=== PATIENT | male | born 1950 | race American Indian/Alaskan Native ===

== ENCOUNTER 2017-04-12 17:58 | Emergency (ER) | payer MEDICARE, OTHER ==
[2017-04-12 18:06] VITALS: BP 139/83; PULSE 84; RESP 16; TEMP 98.1
[2017-04-12 18:23] VITALS: O2SAT 98
--- NOTE | 2017-04-12 18:35 | ED PDOC ---
Arrival/HPI - General Chief Complaint: Allergic Reaction Time Seen by Provider: 04/12/17 18:16 Historian: Patient - History of Present Illness Narrative History of Present Illness (Text): 04/12/17 18:30 A 66 year old male, whose past medical history includes hypertension, coronary artery disease with cabg, AICD, and lymphoma that is reportedly in remission, presents to the emergency department complaining of itching primarily on scalp but also feeling it on arms and legs. Patient has no rash. Patient reports using ibuprofen for the past month for sciatica. Patient also notes a right sided headache over the past week. Patient denies abdominal pain, nausea, vomiting, fever or any other complaints at this time. Dr. Cuadra Symptom Onset: Sudden Symptom Course: Unchanged Activities at Onset: Rest Context: Home Past Medical History - Provider Review Nursing Documentation Reviewed: Yes - Cardiac Hx Hypertension: Yes Hx Pacemaker: Yes (AICD) - Pulmonary Hx Respiratory Disorders: No - Neurological Hx Neurological Disorder: No - HEENT Hx HEENT Disorder: No - Renal Hx Renal Disorder: No - Endocrine/Metabolic Hx Endocrine Disorders: No - Hematological/Oncological Hx Anemia: Yes - Integumentary Hx Dermatological Disorder: No - Musculoskeletal/Rheumatological Hx Back Pain: Yes - Gastrointestinal Hx Gastrointestinal Disorders: Yes Hx Gastroesophageal Reflux: Yes - Genitourinary/Gynecological Hx Genitourinary Disorders: No - Psychiatric Hx Psychophysiologic Disorder: No Hx Substance Use: No - Surgical History Hx Cholecystectomy: Yes Hx Coronary Artery Bypass Graft: Yes (Triple Bypass) - Anesthesia Hx Anesthesia: Yes Family/Social History - Physician Review Nursing Documentation Reviewed: Yes Family/Social History: No Known Family HX Smoking Status: Never Smoked Hx Alcohol Use: Yes Hx Substance Use: No Allergies/Home Meds Allergies/Adverse Reactions: Allergies No Known Allergies Allergy (Unverified 04/12/17 18:00) Home Medications: Home Meds Medication Instructions Recorded Confirmed Aspirin [Aspirin Low Dose] 81 mg PO DAILY 08/20/15 04/12/17 Atorvastatin [Lipitor] 10 mg PO DAILY 08/20/15 04/12/17 Carvedilol [Coreg] 3.125 mg PO BID 08/20/15 04/12/17 Losartan Potassium 25 mg PO DAILY 08/20/15 04/12/17 Omeprazole [PrilOSEC] 40 mg PO DAILY 09/20/15 05/13/17 Review of Systems - Physician Review All systems were reviewed & negative as marked: Yes - Review of Systems Constitutional: absent: Fevers Respiratory: absent: SOB Cardiovascular: absent: Chest Pain Gastrointestinal: absent: Abdominal Pain, Nausea, Vomiting Genitourinary Male: absent: Dysuria Skin: Pruritis. absent: Skin Lesions Neurological: Headache (r sided). absent: Dizziness, Focal Weakness Physical Exam Vital Signs Reviewed: Yes Vital Signs Temp Pulse Resp BP Pulse Ox 04/12/17 18:22 98.1 F 84 16 98 04/12/17 18:01 98.1 F 84 16 139/83 96 Temperature: Afebrile Blood Pressure: Normal Pulse: Regular Respiratory Rate: Normal Appearance: Positive for: Well-Appearing, Non-Toxic, Comfortable Pain Distress: None Mental Status: Positive for: Alert and Oriented X 3 - Systems Exam Head: Present: Atraumatic, Normocephalic Pupils: Present: PERRL Conjunctiva: Present: Normal Mouth: Present: Moist Mucous Membranes Pharnyx: Present: Normal. No: ERYTHEMA, EXUDATE Neck: Present: Normal Range of Motion Respiratory/Chest: Present: Clear to Auscultation, Good Air Exchange. No: Respiratory Distress, Accessory Muscle Use Cardiovascular: Present: Regular Rate and Rhythm, Normal S1, S2. No: Murmurs Abdomen: Present: Normal Bowel Sounds. No: Tenderness, Distention, Peritoneal Signs Back: Present: Normal Inspection Upper Extremity: Present: Normal Inspection. No: Cyanosis, Edema Lower Extremity: Present: Normal Inspection. No: Edema Neurological: Present: GCS=15, CN II-XII Intact, Speech Normal Skin: Present: Warm, Dry, Normal Color. No: Rashes Psychiatric: Present: Alert, Oriented x 3, Normal Insight, Normal Concentration Medical Decision Making ED Course and Treatment: 04/12/17 18:37 Impression: A 66 year old male with itching on scalp, arms and legs and right sided headache. Differential Diagnosis included but are not limited to: allergic reaction vs. hyperbilirubinemia/cholestatic vs. malignancy related Plan: -- CT head wo contrast -- Labs -- Reassess and disposition Prior Visits: Notes and results from previous visits were reviewed. Patient last reported to the emergency department on 08/20/15 for evaluation of abdominal pain. Patient was discharged. Progress Notes: CT head- FINDINGS: BRAIN: Areas of low density in the periventricular white matter bilaterally, most likely representing mild chronic small vessel ischemic changes. Diffuse, mild, age-related cortical atrophy and ventriculomegaly. No significant acute abnormality identified. No acute hemorrhage seen within the brain. No acute extra-axial fluid collections visualized. No evidence of significant mass effect within the brain. No CT findings to suggest an acute, large territorial infarct, however, small or early acute infarcts may not be visible on CT. VENTRICLES: See above. BONES/JOINTS: No acute fractures or other acute bony abnormality noted. SOFT TISSUES: No acute abnormality of the visualized soft tissues is seen. VASCULATURE: Vascular calcification and ectasia. SINUSES: Visualized paranasal sinuses appear clear. MASTOID AIR CELLS: Mastoid air cells appear clear. IMPRESSION: - No acute findings seen within the brain. - See above for remaining findings. Dictated and Authenticated by: Kathy Petit MD 04/12/2017 7:56 PM Eastern Time ([place] & [place]) Patient with unremarkable LFTs and normal brain CT - will have him d/c the ibuprofen and start atarax. Given his history of lymphoma and possible relationship of pruritis to hematologic malignancies, the patient has been advised to f/u with his oncologist at [facility]. - Lab Interpretations Lab Results: 04/12/17 19:00 04/12/17 19:00 Lab Results 04/12/17 19:00: Sodium 136, Potassium 4.5, Chloride 97 L, Carbon Dioxide 29, Anion Gap 15, BUN 22 H, Creatinine 1.0, Est GFR ( Amer) > 60, Est GFR ( Non-Af Amer) > 60, Random Glucose 85, Calcium 10.1, Total Bilirubin 0.7, AST 44 , ALT 53, Alkaline Phosphatase 123, Total Protein 8.2, Albumin 4.3, Globulin 3.9 , Albumin/Globulin Ratio 1.1 04/12/17 19:00: Direct Bilirubin 0.5 H 04/12/17 19:00: WBC 4.7, RBC 4.85, Hgb 14.7, Hct 42.9, MCV 88.5, MCH 30.3, MCHC 34.3, RDW 13.4, Plt Count 127, MPV 9.9, Gran % 56.7, Lymph % (Auto) 30.8, [place] % (Auto) 9.1 H, Eos % (Auto) 3.4, Baso % (Auto) 0.0, Gran # 2.69, Lymph # 1.5, [place] # 0.4, Eos # 0.2, Baso # 0.00 I have reviewed the lab results: Yes - RAD Interpretation Radiology Orders: 04/12/17 18:25 Brain [HEAD W/O CONTRAST] [CT] Stat - Scribe Statement The provider has reviewed the documentation as recorded by the Scribe Yanet Bliss Provider Scribe Attestation: All medical record entries made by the Scribe were at my direction and personally dictated by me. I have reviewed the chart and agree that the record accurately reflects my personal performance of the history, physical exam, medical decision making, and the department course for this patient. I have also personally directed, reviewed, and agree with the discharge instructions and disposition. Disposition/Present on Arrival - Present on Arrival Any Indicators Present on Arrival: No History of DVT/PE: No History of Uncontrolled Diabetes: No Urinary Catheter: No History of Decub. Ulcer: No History Surgical Site Infection Following: None - Disposition Have Diagnosis and Disposition been Completed?: Yes Diagnosis: Pruritic condition Disposition: HOME/ ROUTINE Disposition Time: 20:10 Patient Plan: Transfer To Condition: GOOD Discharge Instructions (ExitCare): Itchy Skin (ED) Additional Instructions: Stop the ibuprofen and use the atarax as prescribed for itching. Also stop any recent detergents, soaps, or perfumes. Make matthew you follow up with your oncologist at [facility] to assure that the itching is not related to any malignancy. Return to the emergency department if any new concerning symptoms. Prescriptions: hydrOXYzine HCl [Atarax] 25 mg PO Q6H PRN #30 tab PRN Reason: Itching / Pruritus Referrals: Carole Cuadra MD [Primary Care Provider] - Follow up with primary
[2017-04-12 19:21] LABS: ADD MANUAL DIFF? NO
[2017-04-12 19:36] LABS: EOS # 0.2 (0.0-0.7); EOS % 3.4 % (1.5-5.0); GRAN # 2.69 (1.4-6.5); GRAN % 56.7 % (50.0-68.0); HEMATOCRIT 42.9 % (42.0-52.0); LYMPH # 1.5 (1.2-3.4); LYMPH % 30.8 % (22.0-35.0); MEAN CELL VOLUME 88.5 fL (80.0-105.0); MEAN CORPUSCULAR HEMOGLOBIN 30.3 pg (25.0-35.0); MEAN CORPUSCULAR HGB CONC 34.3 g/dl (31.0-37.0); MEAN PLATELET VOLUME 9.9 fl (7.0-11.0); MONO # 0.4 (0.1-0.6); MONO % 9.1 % (1.0-6.0); PLATELET COUNT 127 10^3/uL (120.0-450.0); RED CELL DISTRIBUTION WIDTH 13.4 % (11.5-14.5); WHITE BLOOD COUNT 4.7 10^3/ul (4.5-11.0)
--- NOTE | 2017-04-12 19:56 | CT ---
EXAM: CT Head Without Intravenous Contrast CLINICAL HISTORY: 66 years old, male; Condition or disease; Headache; Patient HX: R side headache TECHNIQUE: Axial computed tomography images of the head/brain without intravenous contrast. This CT exam was performed using one or more of the following dose reduction techniques: automated exposure control, adjustment of the mA and/or kV according to patient size, and/or use of iterative reconstruction technique. EXAM DATE/TIME: 04/12/2017 6:25 PM COMPARISON: No relevant prior studies available. FINDINGS: BRAIN: Areas of low density in the periventricular white matter bilaterally, most likely representing mild chronic small vessel ischemic changes. Diffuse, mild, age-related cortical atrophy and ventriculomegaly. No significant acute abnormality identified. No acute hemorrhage seen within the brain. No acute extra-axial fluid collections visualized. No evidence of significant mass effect within the brain. No CT findings to suggest an acute, large territorial infarct, however, small or early acute infarcts may not be visible on CT. VENTRICLES: See above. BONES/JOINTS: No acute fractures or other acute bony abnormality noted. SOFT TISSUES: No acute abnormality of the visualized soft tissues is seen. VASCULATURE: Vascular calcification and ectasia. SINUSES: Visualized paranasal sinuses appear clear. MASTOID AIR CELLS: Mastoid air cells appear clear. IMPRESSION: - No acute findings seen within the brain. - See above for remaining findings.
[2017-04-12 19:58] LABS: ALB/GLOB RATIO 1.1 (1.1-1.8); ALKALINE PHOSPHATASE 123 U/L (38-133); ALT/SGPT 53 U/L (7-56); AST/SGOT 44 U/L (15-59); BILIRUBIN,TOTAL 0.7 mg/dL (0.2-1.3); BLOOD UREA NITROGEN 22 mg/dL (7-21); CALCIUM 10.1 mg/dL (8.4-10.5); CARBON DIOXIDE 29 mmol/L (21-33); CHLORIDE 97 mmol/L (98-107); GFR AFRICAN-AMERICAN > 60; GLUCOSE,RANDOM 85 mg/dL (70-110); POTASSIUM 4.5 mmol/L (3.6-5.0); SODIUM 136 mmol/L (132-148); TOTAL PROTEIN 8.2 g/dL (5.8-8.3)
== END 2017-04-12 20:25 | disposition home or self-care (01) ==
LOC: ED 17:58
DX: L29.9 Pruritus, unspecified (principal); I10 Essential (primary) hypertension; I25.10 Atherosclerotic heart disease of native coronary artery without angina pectoris; Z95.1 Presence of aortocoronary bypass graft

== ENCOUNTER 2018-08-07 19:30 | Observation (INO) | payer MEDICARE ==
--- NOTE | 2018-08-07 20:21 | ED PDOC ---
Arrival/HPI - General Chief Complaint: Pacemaker Problem Time Seen by Provider: 08/07/18 19:51 Historian: Patient - History of Present Illness Narrative History of Present Illness (Text): 08/07/18 20:23 Patient 68-year-old male with past medical history of a triple bypass in 2013, tissue valvular implant 2013, and AICD placement in 2014, reports while he was driving he started feeling dizzy described as lightheadedness associated with palpitations, then suddenly he felt a shock for a second from his defibrillator which has never occurred before. Reports no chest pain, dizziness, palpitations currently, states that he "feels good." Otherwise: (-) radiation, (-) diaphoresis, (-) dyspnea, (-) pleuritic component, (-) ripping or tearing quality, (-) positional component, (-) exertional component, (-) syncope, (-) nausea, (-) vomiting, (-) calf swelling/pain, (-) neuro deficits. Patient further adds that he had a stress test and an echo ~2-3 years ago and "was good. " Patient adds that he took his aspirin dose today. Cardio : Rory Camarena ([facility]) PMD : You Ashley APN ([facility]) Sack Department Supervisor : Kaveh Penn Past Medical History - Cardiac Hx Cardiac Disorders: Yes Hx Hypertension: Yes Hx Pacemaker: Yes (AICD) - Pulmonary Hx Respiratory Disorders: No - Neurological Hx Neurological Disorder: No - HEENT Hx HEENT Disorder: No - Renal Hx Renal Disorder: No - Endocrine/Metabolic Hx Endocrine Disorders: No - Hematological/Oncological Hx Blood Disorders: Yes Hx Anemia: Yes - Integumentary Hx Dermatological Disorder: No - Musculoskeletal/Rheumatological Hx Musculoskeletal Disorders: Yes Hx Back Pain: Yes - Gastrointestinal Hx Gastrointestinal Disorders: Yes Hx Gastroesophageal Reflux: Yes - Genitourinary/Gynecological Hx Genitourinary Disorders: No - Psychiatric Hx Psychophysiologic Disorder: No Hx Substance Use: No - Surgical History Hx Cholecystectomy: Yes Hx Coronary Artery Bypass Graft: Yes (Triple Bypass) - Anesthesia Hx Anesthesia: Yes Family/Social History Family/Social History: Unknown Family HX Smoking Status: Light Smoker < 10 Cigarettes Daily Hx Alcohol Use: No Hx Substance Use: No Allergies/Home Meds Allergies/Adverse Reactions: Allergies No Known Allergies Allergy (Unverified 08/07/18 19:35) Home Medications: Home Meds Medication Instructions Recorded Confirmed Aspirin [Aspirin Low Dose] 81 mg PO DAILY 08/20/15 08/07/18 Atorvastatin [Lipitor] 10 mg PO DAILY 08/20/15 08/07/18 Carvedilol [Coreg] 3.125 mg PO BID 08/20/15 08/07/18 Losartan Potassium 25 mg PO DAILY 08/20/15 08/07/18 Omeprazole [PrilOSEC] 40 mg PO DAILY 08/20/15 08/07/18 Review of Systems - Review of Systems Constitutional: absent: Fatigue, Fevers Respiratory: absent: SOB, Cough, Sputum Cardiovascular: Palpitations. absent: Chest Pain Gastrointestinal: Nausea. absent: Abdominal Pain, Stool Changes Genitourinary Male: absent: Dysuria, Frequency, Hematuria Musculoskeletal: absent: Arthralgias, Back Pain, Neck Pain Skin: absent: Rash, Pruritis, Skin Lesions Neurological: Dizziness. absent: Headache, Focal Weakness Physical Exam Vital Signs Temp Pulse Resp BP Pulse Ox 08/07/18 19:36 98.7 F 82 16 95/60 L 96 Temperature: Afebrile Blood Pressure: Normal Pulse: Regular Respiratory Rate: Normal Appearance: Positive for: Well-Appearing, Non-Toxic, Comfortable Pain Distress: None Mental Status: Positive for: Alert and Oriented X 3 - Systems Exam Head: Present: Atraumatic, Normocephalic Pupils: Present: PERRL Extroacular Muscles: Present: EOMI Conjunctiva: Present: Normal Mouth: Present: Moist Mucous Membranes Neck: Present: Normal Range of Motion Respiratory/Chest: Present: Clear to Auscultation, Good Air Exchange. No: Respiratory Distress, Accessory Muscle Use, Wheezes, Rales, Rhonchi Cardiovascular: Present: Regular Rate and Rhythm, Normal S1, S2. No: Murmurs, Tachycardic Abdomen: No: Tenderness, Distention, Peritoneal Signs Back: Present: Normal Inspection Upper Extremity: Present: Normal Inspection, Normal ROM, NORMAL PULSES. No: Cyanosis, Edema Lower Extremity: Present: Normal Inspection, NORMAL PULSES, Normal ROM, Neurovascularly Intact, Capillary Refill < 2 s, Other (no pitting edema). No: Edema, Swelling, Temperature Abnormalties Neurological: Present: GCS=15, CN II-XII Intact, Speech Normal, Motor Func Grossly Intact, Normal Sensory Function Skin: Present: Warm, Dry, Normal Color. No: Rashes Psychiatric: Present: Alert, Oriented x 3, Normal Insight, Normal Concentration Medical Decision Making ED Course and Treatment: 08/07/18 20:21 Plan: -- Labs -- IV -- conveyor monitor -- EKG -- CXR -- Reassess and disposition EKG: NSR at 71 bpm, LAD, (-) acute ST changes, as read by BRIGID. CXR : increase in vascular markings, NAD, as read by PA Labs reviewed : Troponin negative, BNP 1999 On re-evaluation, patient remains AAOx3, in no acute distress, speaking in full sentences. He is ambulatory in the ER. He is in good spirits, has no complaints. Reports no dizziness, CP, palpitations, SOB. Diagnostic results d/w him, plan for further tele obs d/w the patient, which he agrees to. Case d/w Dr. Singh and Dr. Perales, agree with plan for tele obs under the hospitalist service. - Lab Interpretations Lab Results: 08/07/18 20:42 08/07/18 20:42 Lab Results 08/07/18 20:42: Sodium 138, Potassium 4.7, Chloride 103, Carbon Dioxide 25, Anion Gap 14, BUN 20, Creatinine 1.0, Est GFR ( Amer) > 60, Est GFR (Non- Af Amer) > 60, Random Glucose 99, Calcium 9.6, Magnesium 1.7, Total Bilirubin 0.6, AST 36, ALT 36, Alkaline Phosphatase 99, Lactate Dehydrogenase 483, Total Creatine Kinase 291 H, CK-MB (CK-2) 1.9, CK-MB (CK-2) % Cancelled, Troponin I 0.03, NT-Pro-B Natriuret Pep 2090 H, Total Protein 7.4, Albumin 4.2, Globulin 3.2, Albumin/Globulin Ratio 1.3 08/07/18 20:42: PT 12.8 H, INR 1.12, APTT 30.2 08/07/18 20:42: WBC 5.9 D, RBC 4.39, Hgb 13.1 L, Hct 39.1 L, MCV 89.1, MCH 29.8 , MCHC 33.5, RDW 13.3, Plt Count 117 L, MPV 9.2, Gran % 71.1 H, Lymph % (Auto) 23.0, [place] % (Auto) 5.4, Eos % (Auto) 0.3 L, Baso % (Auto) 0.2, Gran # 4.20, Lymph # (Auto) 1.4, [place] # (Auto) 0.3, Eos # (Auto) 0.0, Baso # (Auto) 0.01 - RAD Interpretation Radiology Orders: 08/07/18 20:13 CHEST PORTABLE [RAD] Stat - PA / WIG MAKER / Resident Statement / has reviewed & agrees with the documentation as recorded. Disposition/Present on Arrival - Present on Arrival Any Indicators Present on Arrival: No History of DVT/PE: No History of Uncontrolled Diabetes: No Urinary Catheter: No History of Decub. Ulcer: No History Surgical Site Infection Following: None - Disposition Have Diagnosis and Disposition been Completed?: Yes Diagnosis: CHF (congestive heart failure), AICD discharge Disposition: HOSPITALIZED Disposition Time: 22:00 Patient Plan: Telemetry (observation) Condition: STABLE Discharge Instructions (ExitCare): Heart Failure (ED) Forms: [employer] (Bulgarian)
[2018-08-07 21:08] LABS: BASO # 0.01 K/mm3 (0.0-2.0); BASO % 0.2 % (0.0-3.0); EOS % 0.3 % (1.5-5.0); GRAN # 4.2 (1.4-6.5); GRAN % 71.1 % (50.0-68.0); HEMOGLOBIN 13.1 g/dL (14.0-18.0); LYMPH # 1.4 (1.2-3.4); MEAN CELL VOLUME 89.1 fl (80.0-105.0); MEAN CORPUSCULAR HEMOGLOBIN 29.8 pg (25.0-35.0); MEAN CORPUSCULAR HGB CONC 33.5 g/dl (31.0-37.0); MEAN PLATELET VOLUME 9.2 fl (7.0-11.0); MONO # 0.3 (0.1-0.6); MONO % 5.4 % (1.0-6.0); RBC 4.39 10^6/uL (3.5-6.1); RED CELL DISTRIBUTION WIDTH 13.3 % (11.5-14.5); WHITE BLOOD COUNT 5.9 10^3/ul (4.5-11.0)
[2018-08-07 21:13] LABS: ALB/GLOB RATIO 1.3 (1.1-1.8); ALBUMIN 4.2 g/dL (3.0-4.8); ALT/SGPT 36 U/L (7-56); AST/SGOT 36 U/L (17-59); BLOOD UREA NITROGEN 20 mg/dL (7-21); CALCIUM 9.6 mg/dL (8.4-10.5); GFR NON-AFRICAN AMERICAN > 60; INR 1.12; PARTIAL THROMBOPLASTIN TIME 30.2 Seconds (25.1-36.5); PROTHROMBIN TIME 12.8 SECONDS (9.4-12.5)
[2018-08-07 21:24] LABS: B-TYPE NATRIURETIC PEPTIDE 2090 pg/mL (0-450); TROPONIN I 0.03 ng/mL
[2018-08-07 21:35] LABS: CK-MB 1.9 ng/mL (0.0-3.6)
--- NOTE | 2018-08-07 23:07 | CP.PCM.HP ---
<Peggy Singh - Last Filed: 08/08/18 03:03> History of Present Illness - History of Present Illness History of Present Illness: PGY1 H&P Note for the Hospitalist Service Pt is a 68yo M with pmhx of triple bypass in 2013, tissue valvular implant 2013 , and AICD placement in 2014, states that while he was driving he started feeling dizzy and then experienced a "kick" from his AICD in the chest. He states that earlier he was lifting heavy objects from his basement and moving them to the car and back. Then when he went to move his car he started to notice he was lightheaded. He then started to worry that he was going to have another AL and he began to notice palpitations associated with the stress. He then states that all of a sudden he felt something that felt like a hard kick to his chest. He states that right after that "kick", he no longer felt lightheaded, weak or any other complaints. He currently denies feeling any chest pain, palpitations or dizziness. He also denies any fevers, chills, SOB, cough, chest pain, diaphoresis, dyspnea, lightheadedness, nausea, vomiting, numbness or tingling. Cardio : Rory Camarena ([facility]) PMD : You Ashley APN ([facility]) Tower Hand : Kaveh Penn PMHx: CAD s/p triple bypass, HFrEF s/p AICD placement, Chronic back pain, and GERD PSHx: Triple bypass in 2013, tissue valvular implant 2013, AICD placement in 2014, cholecystectomy FH: All brothers: AL in 60s-70s SH: 6 cigs/day smoker currently, denies ETOH, lives with , ambulates well independently All:NKDA Med: ASA, Coreg, losartin, lipitor, PPI Present on Admission - Present on Admission Any Indicators Present on Admission: No Review of Systems - Constitutional Constitutional: absent: Chills, Fever, Night Sweats, Weakness - EENT Eyes: absent: Blurred Vision, Change in Vision - Cardiovascular Cardiovascular: absent: Chest Pain, Chest Pain with Activity, Dyspnea on Exertion, Pain Radiating to Arm/Neck/Jaw, Palpitations, Pedal Edema - Respiratory Respiratory: absent: Cough, Hemoptysis, Wheezing - Gastrointestinal Gastrointestinal: absent: Abdominal Pain, Constipation, Diarrhea, Nausea, Vomiting - Genitourinary Genitourinary: absent: Change in Urinary Stream, Dysuria, Hematuria - Neurological Neurological: absent: Confusion, Dizziness, Numbness, Focal Weakness, Tingling, Vertigo Past Patient History - Past Social History Smoking Status: Light Smoker < 10 Cigarettes Daily - CARDIAC Hx Cardiac Disorders: Yes Hx Hypertension: Yes Hx Pacemaker: Yes (AICD) - PULMONARY Hx Respiratory Disorders: No - NEUROLOGICAL Hx Neurological Disorder: No - HEENT Hx HEENT Problems: No - RENAL Hx Chronic Kidney Disease: No - ENDOCRINE/METABOLIC Hx Endocrine Disorders: No - HEMATOLOGICAL/ONCOLOGICAL Hx Blood Disorders: Yes Hx Anemia: Yes - INTEGUMENTARY Hx Dermatological Problems: No - MUSCULOSKELETAL/RHEUMATOLOGICAL Hx Musculoskeletal Disorders: Yes Hx Back Pain: Yes - GASTROINTESTINAL Hx Gastrointestinal Disorders: Yes Hx Gastroesophageal Reflux: Yes - GENITOURINARY/GYNECOLOGICAL Hx Genitourinary Disorders: No - PSYCHIATRIC Hx Psychophysiologic Disorder: No Hx Substance Use: No - SURGICAL HISTORY Hx Cholecystectomy: Yes Hx Coronary Artery Bypass Graft: Yes (Triple Bypass) - ANESTHESIA Hx Anesthesia: Yes Meds Allergies/Adverse Reactions: Allergies Allergy/AdvReac Type Severity Reaction Status Date / Time No Known Allergies Allergy Unverified 08/07/18 19:35 Physical Exam - Constitutional Appears: Well, Non-toxic, No Acute Distress - Head Exam Head Exam: ATRAUMATIC, NORMAL INSPECTION, NORMOCEPHALIC - Eye Exam Eye Exam: EOMI, Normal appearance, PERRL - ENT Exam ENT Exam: Mucous Membranes Moist, Normal Exam - Respiratory Exam Respiratory Exam: Clear to Auscultation Bilateral, NORMAL BREATHING PATTERN. absent: Accessory Muscle Use, Decreased Breath Sounds, Rales, Rhonchi, Wheezes, Respiratory Distress - Cardiovascular Exam Cardiovascular Exam: REGULAR RHYTHM, +S1, +S2. absent: Gallop, Rubs - GI/Abdominal Exam GI & Abdominal Exam: Normal Bowel Sounds, Soft. absent: Distended, Firm, Guarding, Rebound, Rigid, Tenderness - Neurological Exam Neurological exam: Alert, Oriented x3 - Psychiatric Exam Psychiatric exam: Normal Affect, Normal Mood - Skin Skin Exam: Dry, Intact, Normal Color, Warm Results - Vital Signs Recent Vital Signs: Last Vital Signs Temp 98.7 F 08/07/18 19:36 Pulse 82 09/07/18 19:36 Resp 16 08/07/18 19:36 BP 95/60 L 08/07/18 19:36 Pulse Ox 96 08/07/18 19:36 - Labs Result Diagrams: 08/07/18 20:42 08/07/18 20:42 Assessment & Plan - Assessment and Plan (Free Text) Plan: Pt is a 68yo M with pmhx of triple bypass in 2013, tissue valvular implant 2013 , and AICD placement in 2014, states that while he was driving he started feeling dizzy and then experienced a "kick" from his AICD in the chest. In the ED EKG showed NSR at 71 bpm. 1) Near syncopal episode with ACID firing likely due to arrythmia: - EKG in AM - Tele - Consult cardio - Consult cardiophysiology to interrogate AICD - Repeat trops - Check TSH, free T4 - Goal of K =4, mg = 2 - replete as needed - Cont home ASA 2) Elevated BNP,likely chronic HFrEF = 35-40 done in 2013. : - Hold lasix for now as pt is euvolemic - Maintain PaO2 > 92 3) Active smoker - Nicoderm patch - Kerrick Kleaner Operator for cessation. 4) Elevated CK likely 2/2 recent heavy lifting - Will trend CK in AM 5) HLD - Cont home lipitor GI DVT Ppx: - Protonix - Heparin sc <Gerardo Perales - Last Filed: 08/08/18 06:40> Results - Vital Signs Recent Vital Signs: Last Vital Signs Temp 97.8 F 08/08/18 04:21 Pulse 63 08/08/18 04:21 Resp 20 08/08/18 04:21 BP 126/75 08/08/18 04:21 Pulse Ox 99 08/08/18 03:50 - Labs Result Diagrams: 08/07/18 20:42 08/07/18 20:42 Attending/Attestation - Attestation I have personally seen and examined this patient.: Yes I have fully participated in the care of the patient.: Yes I have reviewed all pertinent clinical information: Yes
[2018-08-07] MEDS ORDERED: Magnesium Oxide 400 mg Tab UD PO STA (23:37)
[2018-08-08 04:43] VITALS: BMI 22.0
[2018-08-08] MEDS: Pantoprazole 40 mg EC Tab PO SCH (05:16)
[2018-08-08 07:58] LABS: BASO # 0.01 K/mm3 (0.0-2.0); BASO % 0.2 % (0.0-3.0); EOS # 0.1 (0.0-0.7); GRAN # 2.32 (1.4-6.5); GRAN % 53.9 % (50.0-68.0); HEMOGLOBIN 12.5 g/dL (14.0-18.0); LYMPH # 1.4 (1.2-3.4); LYMPH % 32.9 % (22.0-35.0); MEAN CELL VOLUME 87.8 fl (80.0-105.0); MEAN CORPUSCULAR HEMOGLOBIN 29.3 pg (25.0-35.0); MEAN CORPUSCULAR HGB CONC 33.4 g/dl (31.0-37.0); MEAN PLATELET VOLUME 10.3 fl (7.0-11.0); MONO # 0.4 (0.1-0.6); RBC 4.26 10^6/uL (3.5-6.1); RED CELL DISTRIBUTION WIDTH 13.2 % (11.5-14.5); WHITE BLOOD COUNT 4.3 10^3/ul (4.5-11.0)
[2018-08-08 08:16] LABS: ALB/GLOB RATIO 1.2 (1.1-1.8); ALBUMIN 3.8 g/dL (3.0-4.8); ALT/SGPT 36 U/L (7-56); AST/SGOT 36 U/L (17-59); BLOOD UREA NITROGEN 19 mg/dL (7-21); CALCIUM 9.2 mg/dL (8.4-10.5); GFR NON-AFRICAN AMERICAN > 60
[2018-08-08 08:19] LABS: TROPONIN I 0.02 ng/mL
[2018-08-08 08:30] LABS: FREE T4 1.15 ng/dL (0.78-2.19)
[2018-08-08 08:33] LABS: CK-MB 1.8 ng/mL (0.0-3.6)
--- NOTE | 2018-08-08 09:22 | CP.PCM.CON ---
History of Present Illness - History of Present Illness History of Present Illness: CONSULT FOR DR. FRIAS Awake, alert, no distress Reason for consultation: Cardiac evaluation for interrogation of AICD. History of coronary artery disease post CABG x 3 in 2013, s/p AICD 2014, Brief history of present illness: A 68 year old male who came in to the ER due to lightheadedness and "kick " from his AICD after lifting heavy objects. He got scared and came to the ER. History of coronary artery disease post CABG x 3 in 2013,tissue valvular implant 2013, s/p AICD 2014,chronic back pain,GERD, current smoker, cholecystectomy. Follows up with Dr. Rory Camarena at [facility]. Seen and examined by me and Dr. Gaviria Covering Dr. Frias Review of Systems - Review of Systems All systems: reviewed and no additional remarkable complaints except Review of Systems: as per HPI Past Patient History - Past Social History Smoking Status: Former Smoker - CARDIAC Hx Cardiac Disorders: Yes Hx Hypertension: Yes Hx Pacemaker: Yes (AICD) - PULMONARY Hx Respiratory Disorders: No - NEUROLOGICAL Hx Neurological Disorder: No - HEENT Hx HEENT Problems: No - RENAL Hx Chronic Kidney Disease: No - ENDOCRINE/METABOLIC Hx Endocrine Disorders: No - HEMATOLOGICAL/ONCOLOGICAL Hx Blood Disorders: Yes Hx Anemia: Yes - INTEGUMENTARY Hx Dermatological Problems: No - MUSCULOSKELETAL/RHEUMATOLOGICAL Hx Musculoskeletal Disorders: Yes Hx Back Pain: Yes Hx Falls: No - GASTROINTESTINAL Hx Gastrointestinal Disorders: Yes Hx Gastroesophageal Reflux: Yes - GENITOURINARY/GYNECOLOGICAL Hx Genitourinary Disorders: No - PSYCHIATRIC Hx Psychophysiologic Disorder: No - SURGICAL HISTORY Hx Cholecystectomy: Yes - ANESTHESIA Hx Anesthesia: Yes Meds Allergies/Adverse Reactions: Allergies Allergy/AdvReac Type Severity Reaction Status Date / Time No Known Allergies Allergy Unverified 08/07/18 19:35 - Medications Medications: Current Medications Aspirin (Ecotrin) 81 mg PO DAILY [facility] Atorvastatin Calcium (Lipitor) 10 mg PO DAILY [facility] Heparin Sodium (Porcine) (Heparin) 5,000 units SC Q8 [facility] PRN Reason: Protocol Last Admin: 08/08/18 05:18 Dose: 5,000 units Nicotine (Nicoderm Cq) 1 patch TD DAILY [facility] Pantoprazole Sodium (Protonix Ec Tab) 40 mg PO 0600 [facility] Last Admin: 08/08/18 05:16 Dose: 40 mg Physical Exam - Constitutional Appears: No Acute Distress - Eye Exam Eye Exam: Normal appearance - ENT Exam ENT Exam: Mucous Membranes Moist - Respiratory Exam Respiratory Exam: Clear to Auscultation Bilateral, NORMAL BREATHING PATTERN - Cardiovascular Exam Cardiovascular Exam: REGULAR RHYTHM, +S1, +S2 Additional comments: telemetry NSR 60's - GI/Abdominal Exam GI & Abdominal Exam: Normal Bowel Sounds, Soft - Extremities Exam Extremities exam: Positive for: normal capillary refill - Neurological Exam Neurological exam: Alert, Oriented x3 - Psychiatric Exam Psychiatric exam: Normal Affect - Skin Skin Exam: Dry, Warm Results - Vital Signs Recent Vital Signs: Last Vital Signs Temp 97.8 F 08/08/18 06:00 Pulse 63 08/08/18 06:00 Resp 20 08/08/18 06:00 BP 126/75 08/08/18 06:00 Pulse Ox 99 08/08/18 06:00 - Labs Result Diagrams: 08/09/18 07:00 08/09/18 07:00 Labs: Laboratory Results - last 24 hr 08/08/18 08/08/18 08/08/18 06:45 06:45 06:45 WBC 4.3 L D RBC 4.26 Hgb 12.5 L Hct 37.4 L MCV 87.8 MCH 29.3 MCHC 33.4 RDW 13.2 Plt Count 114 L MPV 10.3 Gran % 53.9 Lymph % (Auto) 32.9 [place] % (Auto) 10.0 H Eos % (Auto) 3.0 Baso % (Auto) 0.2 Gran # 2.32 Lymph # (Auto) 1.4 [place] # (Auto) 0.4 Eos # (Auto) 0.1 Baso # (Auto) 0.01 Sodium 136 Potassium 3.7 Chloride 103 Carbon Dioxide 27 Anion Gap 10 BUN 19 Creatinine 0.8 Est GFR ( Amer) > 60 Est GFR (Non-Af Amer) > 60 Random Glucose 72 Calcium 9.2 Phosphorus 2.8 Magnesium 1.9 Total Bilirubin 0.5 AST 36 ALT 36 Alkaline Phosphatase 90 Total Creatine Kinase 242 H CK-MB (CK-2) 1.8 CK-MB (CK-2) % Cancelled Troponin I 0.02 D Total Protein 6.8 Albumin 3.8 Globulin 3.0 Albumin/Globulin Ratio 1.2 Free T4 1.15 TSH 3rd Generation 0.50 Assessment & Plan - Assessment and Plan (Free Text) Assessment: A 68 year old male who came in to the ER due to lightheadedness and "kick " from his AICD after lifting heavy objects. He got scared and came to the ER. History of coronary artery disease post CABG x 3 in 2013,tissue valvular implant 2013, s/p AICD 2014,chronic back pain,GERD, current smoker, cholecystectomy. Follows up with Dr. Rory Camarena at [facility]. Denies any symptoms now.Troponin normal. No recent cardiac work up at [facility] [place] Plan: AICD interrogation ([employer]) ECHO to evaluate LV function K level 3.7, will give KCl 40 meq po Heart rate and blood pressure stable Orthostatic vital signs BNP elevated but denies shortness of breath, Chest Xray some vascular congestion, will start Lasix Continue current medications Continue current treatment Smoking cessation Nicoderm patch Will follow up Plan and treatment discussed with Dr. Gaviria Thank you Dr. Foster for the opportunity of taking care of Mr. Charbel Coleman - Date & Time Date: 08/08/18 Time: 09:30
[2018-08-08] MEDS ORDERED: Potassium Chloride 20 mEq ER Tab PO ONE ×2 (10:01→15:00)
--- NOTE | 2018-08-08 10:45 | RAD ---
Date of service: 08/07/2018 HISTORY: dizziness COMPARISON: No prior. FINDINGS: LUNGS: No active pulmonary disease. PLEURA: No significant pleural effusion identified, no pneumothorax apparent. CARDIOVASCULAR: Mild cardiomegaly appreciate without pulmonary vascular congestion. Unipolar permanent cardiac pacemaker/ AICD identified with the generator overlying the left pectoralis region and solitary lead entering the region of the heart. Prosthetic cardiac valve identified. OSSEOUS STRUCTURES: Sternotomy wires status post likely CABG. VISUALIZED UPPER ABDOMEN: Normal. OTHER FINDINGS: None. IMPRESSION: Mild cardiomegaly. No acute cardiopulmonary disease appreciable.
--- NOTE | 2018-08-08 12:21 | CP.PCM.PN ---
<Portillo Nascimento - Last Filed: 08/08/18 15:25> Subjective - Date & Time of Evaluation Date of Evaluation: 08/08/18 Time of Evaluation: 07:00 - Subjective Subjective: Portillo Nascimento, PGY1 Medicine Progress Note for Dr. Foster Patient was seen and examined at bedside this morning. Patient explained that he felt a "kick" in his chest at the site of his AICD ([employer]) while he was driving. Patient had a brief episode of dizziness related to it. Otherwise, he is asymptomatic right now. Denies headache, chest pain, palpitations, dizziness , shortness of breath, nausea, vomiting, diarrhea, numbness and tingling in the extremities. He states that he had interrogation of his AICD 2 months ago by his siphoner, and he normally gets it interrogated every 6 months. This is the first time the patient said he had experienced this brief episode of pain. A full 12 point ROS was conducted and unremarkable except as stated above. Objective - Vital Signs/Intake and Output Vital Signs (last 24 hours): Temp Pulse Resp BP Pulse Ox 97.8 F 63 20 120/69 99 08/08/18 06:00 08/08/18 12:08 08/08/18 06:00 08/08/18 12:09 08/08/18 06:00 Intake and Output: 08/08/18 08/08/18 06:59 18:59 Intake Total 200 Balance 200 - Medications Medications: Current Medications Amiodarone HCl (Cordarone) 200 mg PO DAILY [facility] Amiodarone HCl (Cordarone) 400 mg PO TID [facility] Stop: 08/08/18 23:59 Aspirin (Ecotrin) 81 mg PO DAILY [facility] Last Admin: 08/08/18 09:41 Dose: 81 mg Atorvastatin Calcium (Lipitor) 10 mg PO DAILY [facility] Last Admin: 08/08/18 09:41 Dose: 10 mg Carvedilol (Coreg) 3.125 mg PO BID [facility] Furosemide (Lasix) 40 mg PO DAILY [facility] Heparin Sodium (Porcine) (Heparin) 5,000 units SC Q8 [facility] PRN Reason: Protocol Last Admin: 08/08/18 05:18 Dose: 5,000 units Lisinopril (Zestril) 2.5 mg PO DAILY [facility] Nicotine (Nicoderm Cq) 1 patch TD DAILY [facility] Last Admin: 08/08/18 09:41 Dose: 1 patch Pantoprazole Sodium (Protonix Ec Tab) 40 mg PO 0600 [facility] Last Admin: 08/08/18 05:16 Dose: 40 mg Potassium Chloride (K-Dur 20 Meq Er Tab) 40 meq PO ONCE ONE Stop: 08/08/18 15:01 Spironolactone (Aldactone) 25 mg PO DAILY [facility] - Labs Labs: 08/08/18 06:45 08/08/18 06:45 PT 12.8 SECONDS (9.4-12.5) H 08/07/18 20:42 INR 1.12 08/07/18 20:42 APTT 30.2 Seconds (25.1-36.5) 08/07/18 20:42 - Constitutional Appears: Well, No Acute Distress - Head Exam Head Exam: ATRAUMATIC, NORMAL INSPECTION, NORMOCEPHALIC - Eye Exam Eye Exam: EOMI, Normal appearance, PERRL Pupil Exam: NORMAL ACCOMODATION, PERRL - ENT Exam ENT Exam: Mucous Membranes Moist, Normal Exam - Neck Exam Neck Exam: Full ROM, Normal Inspection. absent: Lymphadenopathy - Respiratory Exam Respiratory Exam: Clear to Ausculation Bilateral, NORMAL BREATHING PATTERN. absent: Rales, Rhonchi, Wheezes - Cardiovascular Exam Cardiovascular Exam: REGULAR RHYTHM, +S1, +S2. absent: Murmur Additional comments: AICD noted at the left chest wall. - GI/Abdominal Exam GI & Abdominal Exam: Soft, Normal Bowel Sounds. absent: Tenderness - Extremities Exam Extremities Exam: Full ROM, Normal Capillary Refill, Normal Inspection. absent : Joint Swelling, Pedal Edema - Back Exam Back Exam: NORMAL INSPECTION - Neurological Exam Neurological Exam: Alert, Awake, Oriented x3 Neuro motor strength exam: Left Upper Extremity: 5, Right Upper Extremity: 5, Left Lower Extremity: 5, Right Lower Extremity: 5 - Skin Skin Exam: Dry, Intact, Normal Color, Warm Assessment and Plan - Assessment and Plan (Free Text) Assessment: Patient is a 68 y/o M with PMHx of CAD (s/p triple bypass 2013), tissue valvular implant (2013), HFrEF s/p AICD placement (2014), chronic back pain, and GERD who presented to the ED on 08/08 for a brief episode of dizziness and a "kick in his chest" while diving. Patient experienced this sensation at the site of his AICD. Patient's AICD was interrogated upon admission and was found to have AICD firing 2/2 SVT. Patient is being monitored on telemetry. Plan: AICD Firing 2/2 SVT, currently asymptomatic - Patient found to be in SVT during his episode of AICD firing (Pacemaker interrogation) - troponins negative x2. Will trend one more trop to r/o ACS - EKG: NSR. No ST or T wave changes. - Cardiology consulted, given x1 Amiodarone. Further recommendations per Cardiology. - TSH/T4 is within normal limits - EP consulted, further recommendations are appreciated. - telemetry - Brief episode of dizziness likely 2/2 AICD firing and resolved, no further workup is recommended. CAD (s/p Triple Bypass in 2013) - c/w Aspirin - f/u lipid panel results - Cardiology consulted HFrEF - BNP elevated (2089) but patient does not show signs of heart failure - f/u Echo - c/w lasix 40 mg PO daily - c/w coreg and spirinolactone, lisinipril - CXR (08/08): no infiltrate. No active pulmonary disease. HLD - c/w lipitor - lipid panel GI ppx: protonix DVT ppx: Heparin sc Dispo: Continue to manage patient on telemetry. Case was discussed and reviewed with Attending Physician, Dr. Foster. <Judit Foster - Last Filed: 08/08/18 18:24> Objective - Vital Signs/Intake and Output Vital Signs (last 24 hours): Temp Pulse Resp BP Pulse Ox 98.6 F 67 18 104/62 99 08/08/18 17:46 08/08/18 17:46 08/08/18 17:46 08/08/18 17:46 08/08/18 17:46 Intake and Output: 08/08/18 08/08/18 06:59 18:59 Intake Total 200 Balance 200 - Medications Medications: Current Medications Amiodarone HCl (Cordarone) 200 mg PO DAILY [facility] Amiodarone HCl (Cordarone) 400 mg PO TID [facility] Stop: 08/08/18 23:59 Last Admin: 08/08/18 15:16 Dose: 400 mg Aspirin (Ecotrin) 81 mg PO DAILY [facility] Last Admin: 09/08/18 09:41 Dose: 81 mg Atorvastatin Calcium (Lipitor) 10 mg PO DAILY [facility] Last Admin: 08/08/18 09:41 Dose: 10 mg Carvedilol (Coreg) 3.125 mg PO BID [facility] Furosemide (Lasix) 40 mg PO DAILY [facility] Heparin Sodium (Porcine) (Heparin) 5,000 units SC Q8 [facility] PRN Reason: Protocol Last Admin: 08/08/18 15:16 Dose: 5,000 units Lisinopril (Zestril) 2.5 mg PO DAILY [facility] Nicotine (Nicoderm Cq) 1 patch TD DAILY [facility] Last Admin: 08/08/18 09:41 Dose: 1 patch Pantoprazole Sodium (Protonix Ec Tab) 40 mg PO 0600 [facility] Last Admin: 08/08/18 05:16 Dose: 40 mg Spironolactone (Aldactone) 25 mg PO DAILY [facility] - Labs Labs: 08/08/18 06:45 08/08/18 06:45 PT 12.8 SECONDS (9.4-12.5) H 08/07/18 20:42 INR 1.12 08/07/18 20:42 APTT 30.2 Seconds (25.1-36.5) 08/07/18 20:42 Attending/Attestation - Attestation I have personally seen and examined this patient.: Yes I have fully participated in the care of the patient.: Yes I have reviewed all pertinent clinical information, including history, physical exam and plan: Yes Notes (Text): 08/08/18 18:21 attending note; patient seen and examined with resident. Patient is a 68 year-old male with PMHx of CAD (s/p triple bypass 2013), s/p AICD placement (2014), chronic back pain, and GERD who presented to the ED on 08/08 for a brief episode of dizziness and a "kick in his chest" while diving. Patient experienced this sensation at the site of his AICD. patient was admitted to telemetry and monitored closely. No episodes in the hospital. Patient was evaluated by siphoner. Started on amiodarone. cardiac enzymes negative. Currently patient is asymptomatic. Case discussed with Dr. Kolb in detail. Patient's AICD was interrogated was found to have AICD firing 2/2 SVT. monitored overnight. Medication adjusted by siphoner. Upon discharge the patient will follow-up with his primary siphoner Rory Camarena [employer] Technician : Kaveh Penn the diagnosis and follow-up plan discussed with patient in detail.
--- NOTE | 2018-08-08 12:32 | CARD ---
APPROVED REPORT Date of service: 08/07/2018 EKG Measurement Heart [id number] <Conclusion> Normal sinus rhythm Possible Left atrial enlargement Left axis deviation Inferior infarct, age undetermined Anterior infarct, age undetermined T wave abnormality, consider lateral ischemia Abnormal ECG
--- NOTE | 2018-08-08 12:51 | CARD ---
APPROVED REPORT Date of service: 08/08/2018 EKG Measurement Heart [id number] <Conclusion> Sinus bradycardia Left axis deviation Inferior infarct, age undetermined Anterior infarct, age undetermined ST & T wave abnormality, consider lateral ischemia Abnormal ECG
--- NOTE | 2018-08-08 20:37 | CARD ---
APPROVED REPORT Date of service: 08/08/2018 EXAM: Two-dimensional and M-mode echocardiogram with Doppler and color Doppler. INDICATION EVAL LV FX 2D DIMENSIONS Left Atrium (2D)4.5 (1.6-4.0cm)IVSd1.7 (0.7-1.1cm) LVDd5.8 (3.9-5.9cm)LVOT Diameter2.4 (1.8-2.4cm) PWd1.8 (0.7-1.1cm) M-Mode DIMENSIONS Aortic Root2.90 (2.2-3.7cm)Aortic Cusp Exc.1.50 (1.5-2.0cm) Aortic Valve AoV Peak Mqvcptap998.0cm/sAoV VTI70.0cmAO Peak GR.33mmHg LVOT Peak Nxpoxulo72.4cm/sLVOT VTI13.00cmAO Mean GR.20mmHg BRINA (VMAX)0.34fs8SRY (VTI)0.13pv2FT P 1/2 Sybk634ws Mitral Valve MV E Lhzowixt46.2cm/sMV E Peak Gr.103mmHgMV A Ktsflwxk690.0cm/s E/A ratio0.9 TDI E/Lateral E'0.0E/Medial E'0.0 Tricuspid Valve TR Peak Fnhhgozc802hj/sRAP [id number] Peak Gr.32mmHg [id number] LEFT VENTRICLE The Left Ventricle is mildly dilated. There is mild to moderate concentric left ventricular hypertrophy. The ejection fraction is severely impaired.EF-25% There is global hypokinesis of the left ventricle. Transmitral Doppler flow pattern is Grade III-reversible restrictive diastolic dysfunction. No left ventricle thrombus noted on this study. There is no ventricular septal defect visualized. There is no left ventricular aneurysm. There is no mass noted in the left ventricle. RIGHT VENTRICLE The right ventricle is mildly dilated. There is normal right ventricular wall thickness. The right ventricular systolic function is normal. ATRIA The left atrium is mildly dilated. The right atrium size is normal. The interatrial septum is intact with no evidence for an atrial septal defect. AORTIC VALVE There is mild to moderate aortic regurgitation. There is no aortic valvular vegetation. Not well visulalized ,Possible BioprostheticAVR MITRAL VALVE The mitral valve is thickened but opens well. Mitral regurgitation is mild to moderate. There is no mitral valve stenosis. There is no evidence of mitral valve prolapse. TRICUSPID VALVE The tricuspid valve is normal in structure. There is mild to moderate tricuspid regurgitation.RVSP-40 mmof hg. There is no tricuspid valve stenosis. There is no tricuspid valve prolapse or vegetation. PULMONIC VALVE The pulmonary valve is normal in structure. There is mild to moderate pulmonic valvular regurgitation. There is no pulmonic valvular stenosis. GREAT VESSELS The aortic root is normal in size. The ascending aorta is normal in size. The pulmonary artery is normal. The IVC is normal in size and collapses >50% with inspiration. PERICARDIAL EFFUSION There is no pleural effusion. There is no pericardial effusion. <Conclusion> The Left Ventricle is mildly dilated. There is mild to moderate concentric left ventricular hypertrophy. The ejection fraction is severely impaired.EF-25% Not well visulalized ,Possible BioprostheticAVR There is mild to moderate aortic regurgitation. Mitral regurgitation is mild to moderate. Mitral regurgitation is mild to moderate. There is mild to moderate tricuspid regurgitation.RVSP-40 mmof hg. There is mild to moderate tricuspid regurgitation.RVSP-40 mmof hg. There is mild to moderate pulmonic valvular regurgitation. The IVC is normal in size and collapses >50% with inspiration. There is no pericardial effusion.
[2018-08-09] MEDS: Pantoprazole 40 mg EC Tab PO SCH (05:29)
[2018-08-09 06:13] VITALS: O2SAT 99
[2018-08-09 07:36] LABS: BASO # 0.01 K/mm3 (0.0-2.0); BASO % 0.3 % (0.0-3.0); EOS # 0.2 (0.0-0.7); EOS % 4.8 % (1.5-5.0); GRAN # 2.26 (1.4-6.5); GRAN % 57.2 % (50.0-68.0); HEMOGLOBIN 13.2 g/dL (14.0-18.0); LYMPH % 25.8 % (22.0-35.0); MEAN CELL VOLUME 88.5 fl (80.0-105.0); MEAN CORPUSCULAR HEMOGLOBIN 29.7 pg (25.0-35.0); MEAN CORPUSCULAR HGB CONC 33.5 g/dl (31.0-37.0); MEAN PLATELET VOLUME 10.2 fl (7.0-11.0); MONO # 0.5 (0.1-0.6); MONO % 11.9 % (1.0-6.0); RBC 4.45 10^6/uL (3.5-6.1); RED CELL DISTRIBUTION WIDTH 13.4 % (11.5-14.5)
[2018-08-09 08:06] LABS: LDL CHOLESTEROL 90 mg/dL (0-129)
[2018-08-09 08:10] LABS: ALB/GLOB RATIO 1.2 (1.1-1.8); ALT/SGPT 35 U/L (7-56); AST/SGOT 34 U/L (17-59); BLOOD UREA NITROGEN 26 mg/dL (7-21); CALCIUM 9.3 mg/dL (8.4-10.5); GFR NON-AFRICAN AMERICAN > 60; HDL CHOLESTEROL 68 mg/dL (29-60)
[2018-08-09 12:50] VITALS: BP 134/75; PULSE 70; RESP 17; TEMP 98
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
--- NOTE | 2018-08-09 15:53 | PN ---
DATE: 08/09/2018 REASON FOR DICTATION: Covering Dr. Frias. REASON FOR THE CONSULTATION: Cardiac evaluation and interrogation of pacemaker, pacemaker defibrillator fired, history of CABG, AVR in 2013 and history of AICD in 2014. SUBJECTIVE: The patient denies any chest pain, shortness of breath or any palpitation. OBJECTIVE: GENERAL: Not in any apparent distress. VITAL SIGNS: Temperature afebrile, heart rate 64, blood pressure 110/68. HEENT: PERRLA. Extraocular muscles intact. NECK: Supple. No carotid bruit. No thyromegaly. CHEST: Clear to auscultation. HEART: S1 and S2 regular. ABDOMEN: Soft. EXTREMITIES: Clubbing and cyanosis negative. LABORATORY DATA: Blood workup as follows; WBC 4, hemoglobin 13, hematocrit 39.4, platelet count 120. Chemistry shows sodium 130, potassium 4.6, chloride 104, carbon dioxide 26, anion gap of 11, BUN 26, creatinine 0.9. Troponin 0.02, remains flat, though defibrillator fired. IMPRESSION: A 68-year-old male with past medical history significant for coronary artery disease, status post aortic valve replacement in 2014, status post automatic implantable cardioverter-defibrillator admitted with defibrillator fired twice. Interrogations of the patient ventricular fibrillation, appropriate shock delivered, converted to normal sinus. So far, no evidence of acute myocardial infarction. Troponin remains flat. Instead of firing of the defibrillator, troponin remains 0.02. We loaded with amiodarone. The patient was not on amiodarone. So, we will resume back Coreg, atorvastatin, aspirin, spironolactone, lisinopril. Add on amiodarone and okay discharge to discharge to follow up. The patient needs stress test. The patient had a cardiac catheterization two years ago, it was negative and had a stress test two years ago. The patient wants to follow up with Dr. Jelani Penn, hospitality intern and for cardiac catheterization. I explained to the patient in length, so possible discharge today and follow up with Dr. Penn. I will transfer care tomorrow to Dr. Frias. Yolis Gaviria MD
== END 2018-08-09 14:08 | disposition home or self-care (01) ==
LOC: ED 19:30 → ERH 22:10 → 2RNO 08-08 04:12
PROVIDERS: ADMIT Internal Medicine; ATTEND Internal Medicine
DX: I47.1 Supraventricular tachycardia (principal); I49.01 Ventricular fibrillation; I25.10 Atherosclerotic heart disease of native coronary artery without angina pectoris; K21.9 Gastro-esophageal reflux disease without esophagitis; I10 Essential (primary) hypertension; F17.210 Nicotine dependence, cigarettes, uncomplicated; Z90.49 Acquired absence of other specified parts of digestive tract; Z95.2 Presence of prosthetic heart valve; Z95.810 Presence of automatic (implantable) cardiac defibrillator; Z95.1 Presence of aortocoronary bypass graft
CPT/HCPCS: 36415; 71045; 80053; 80061; 82550; 82553; 83615; 83735; 83880; 84100; 84439; 84443; 84484; 85025; 85610; 85730; 93005; 93306; 96372; 96374; 99284; G0378; J1644; J1940